=== PATIENT | female | born 1975 | race American Indian/Alaskan Native ===

== ENCOUNTER 2022-05-23 11:50 | Emergency (ER) | payer SELFPAY ==
--- NOTE | 2022-05-23 13:16 | Event Note ---
ED Screening Note ED Screening Note: 46-year-old female presenting with chest pain. Patient reports also experiencing some anxiety attack she just experienced grief as per spouse in front of her 9-year-old. She is experiencing increasing anxiety attacks, she is tearful in triage no SI no HI. 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 In the setting of a significantly high volume and record number of patients presenting to the emergency department and the fact that we have a limited space to see patients we have implemented the provider in triage protocol this allows an expedited initial exam of patients that might otherwise have left without being seen or who would wait longer than usual to be seen by provider. I interviewed the patient and performed a limited physical exam. This patient is a pulled from the waiting room to triage room for an initial assessment of adrenal studies and then returned to the waiting room pending results of the studies. The ultimate final evaluation and disposition may be performed by another provider depending on room and provider availability.
--- NOTE | 2022-05-23 13:44 | XRay Report ---
CHEST 2 VIEWS INDICATION / CLINICAL INFORMATION: chest pain. COMPARISON: None available. FINDINGS: SUPPORT DEVICES: None. HEART / MEDIASTINUM: No significant abnormality. LUNGS / PLEURA: No significant pulmonary or pleural abnormality. No pneumothorax. ADDITIONAL FINDINGS: No significant additional findings. IMPRESSION: 1. No acute findings. Signer Name: Dayton De La Garza MD Signed: 05/23/2022 1:40 PM Workstation Name: [id number]
[2022-05-23 14:50] LABS: Hematocrit 43.6 % (30.3-42.9); Hemoglobin 14.6 gm/dl (10.1-14.3); Mean Corpuscular HGB Conc 34 % (30-34); Mean Corpuscular Volume 83 fl (79-97); Platelet Count 273 K/mm3 (140-440); Red Blood Count 5.29 M/mm3 (3.65-5.03); Red Cell Distribution Width 16.2 % (13.2-15.2)
[2022-05-23 14:52] LABS: BUN/Creatinine Ratio 11; Blood Urea Nitrogen 10 mg/dL (7-17); Calcium 9.5 mg/dL (8.4-10.2); Hemolysis Index 5
[2022-05-23] MEDS ORDERED: cloNIDine 0.1 MG TAB PO ONE (17:39)
[2022-05-23] MEDS ORDERED: LISINOPRIL 20 MG TAB PO ONE (17:42)
[2022-05-23] MEDS ORDERED: LORazepam 1 MG TAB PO ONE (17:43)
[2022-05-23] MEDS ORDERED: cloNIDine 0.2 MG TAB PO ONE (17:43)
[2022-05-23 19:03] VITALS: BP 227/132
--- NOTE | 2022-05-23 19:17 | Emergency Department Report ---
ED Chest Pain HPI - General Chief Complaint: Chest Pain Stated Complaint: CHEST PAIN Time Seen by Provider: 05/23/22 18:11 Source: patient, family Mode of arrival: Ambulatory Limitations: No Limitations - History of Present Illness Initial Comments: 46-year-old female history of hypertension medication noncompliant presents to the emergency department with chest pain. Patient reports she was at work and had sudden panic attack, reports she just experienced the loss of her partner who few days ago in her arms, and has since had a hard time grieving. She is very tearful, anxious. She denies history of anxiety, she denies taking any medications. She denies headache, dizziness, vision changes, she denies drug use. No SI no HI -: Sudden Pain Location: substernal Pain Radiation: none Severity: moderate Severity scale (0 -10): 3 Quality: tightness Consistency: other (Improve) Improves With: nothing Worsens With: nothing Context: other (Recent loss) re: denies: nausea, vomting, diaphoresis, dyspnea, sense of impending doom Treatments Prior to Arrival: none - Related Data Previous Rx's Medication Instructions Recorded Last Taken Type Naproxen [Naprosyn] 500 mg PO BID #20 tablet 09/23/19 Unknown Rx LORazepam [Ativan] 0.5 mg PO QHS #7 tab 05/23/22 Unknown Rx hydroCHLOROthiazide [Hctz] 12.5 mg PO QDAY #30 capsule 05/23/22 Unknown Rx lisinopriL [Zestril TAB] 40 mg PO QDAY #30 tablet 05/23/22 Unknown Rx Allergies Allergy/AdvReac Type Severity Reaction Status Date / Time No Known Allergies Allergy Verified 05/23/22 13:15 Heart Score - HEART Score History: Moderately suspicious EKG: Non-specific Age: < 45 Risk factors: 1-2 risk factors Troponin: < normal limit HEART Score: 3 - EKG Read Time Time EKG Completed: 13:13 EKG Read Time: 13:20 - Critical Actions Critical Actions: 0-3 pts:0.9-1.7%risk of adverse cardiac event.Candidate for discharge ED Review of Systems ROS: Stated complaint: CHEST PAIN Other details as noted in HPI Constitutional: no symptoms reported. denies: chills, diaphoresis, fever Eyes: as per HPI ENT: denies: ear pain, throat pain Respiratory: denies: cough, orthopnea, wheezing Cardiovascular: chest pain, palpitations. denies: dyspnea on exertion, edema, syncope Endocrine: denies: excessive sweating, intolerance to cold Gastrointestinal: denies: abdominal pain, nausea, vomiting Musculoskeletal: denies: back pain Skin: denies: rash Neurological: denies: headache, weakness, numbness, paresthesias Hematological/Lymphatic: denies: easy bruising ED Past Medical Hx - Past Medical History Previous Medical History?: Yes Hx Hypertension: Yes - Social History Smoking Status: Current Every Day Smoker Substance Use Type: None - Medications Home Medications: Home Medications Medication Instructions Recorded Confirmed Last Taken Type Naproxen [Naprosyn] 500 mg PO BID #20 tablet 09/23/19 Unknown Rx LORazepam [Ativan] 0.5 mg PO QHS #7 tab 05/23/22 Unknown Rx hydroCHLOROthiazide [Hctz] 12.5 mg PO QDAY #30 capsule 05/23/22 Unknown Rx lisinopriL [Zestril TAB] 40 mg PO QDAY #30 tablet 05/23/22 Unknown Rx ED Physical Exam - General Limitations: No Limitations General appearance: alert, anxious - Head Head exam: Present: atraumatic - Eye Eye exam: Present: normal appearance Pupils: Present: normal accommodation - ENT ENT exam: Present: normal exam, normal orophraynx - Neck Neck exam: Present: normal inspection - Respiratory Respiratory exam: Present: normal lung sounds bilaterally. Absent: respiratory distress, chest wall tenderness - Cardiovascular Cardiovascular Exam: Present: regular rate, normal rhythm - GI/Abdominal GI/Abdominal exam: Present: soft. Absent: hyperactive bowel sounds - Extremities Exam Extremities exam: Present: normal inspection, full ROM, normal capillary refill. Absent: tenderness - Back Exam Back exam: Present: normal inspection, full ROM. Absent: tenderness - Neurological Exam Neurological exam: Present: alert, oriented X3 - Psychiatric Psychiatric exam: Present: anxious, other (Appropriate behavior consolable) ED Course Vital Signs 05/23/22 05/23/22 05/23/22 13:05 17:36 19:01 Temperature 98.1 F 97.8 F Pulse Rate 95 H 88 Respiratory 18 18 Rate Blood Pressure 227/132 Blood Pressure 216/144 253/127 [Right] O2 Sat by Pulse 95 97 Oximetry ED Medical Decision Making - Lab Data Result diagrams: 05/23/22 14:08 05/23/22 14:08 - EKG Data When compared to previous EKG there are: previous EKG unavailable 05/23/22 20:57 EKG taken at 1313, normal sinus rhythm at 93, PVC, LAE, anterior infarct old, CT interval 672, QRS of 98, QT/QTc of 390/486, abnormal EKG. - Medical Decision Making 46-year-old female history of hypertension medication noncompliant presents to the emergency department with chest pain. Patient reports she was at work and had sudden panic attack, reports she just experienced the loss of her partner who few days ago in her arms, and has since had a hard time grieving. She is very tearful, anxious. She denies history of anxiety, she denies taking any medications. She denies headache, dizziness, vision changes, she denies drug use. No SI no H Patient has been off blood pressure medications for over 2 years, most likely her pressure has been high for a while. She is unsure of what her blood pressure usually runs as she does not check her blood pressure no has been to a doctor's office in over a year. Blood pressure addressed with home medication, her anxiety has been addressed as well, no SI no HI, patient has a good support system, and also has an appointment with a grief and counselor for herself and her son in 3 days. Symptoms are without headache, without orthopnea, her chest x-ray is negative for any acute cardiomegaly or effusions, most likely resistant hypertension secondary to medication noncompliance. Patient refused to stay for admission or further blood pressure management, insist on going home. I have refilled her lisinopril, I added some hydrochlorothiazide 12.5 mg, and I also gave patient 7 tablets of Ativan as needed for panic attacks/insomnia. Patient remained stable nontoxic-appearing, afebrile, ambulating steadily without assistance. Gone over ED findings with patient as well as plan for follow-up. Also discussed return precautions with patient, all questions and concerns addressed. Patient is stable to be discharged follow-up outpatient. Audio voice dictation device used, hence the chart might contain some dictation errors, mispronunciations, wrong spelling and wrong verbiage. Critical care attestation.: If time is entered above; I have spent that time in minutes in the direct care of this critically ill patient, excluding procedure time. ED Disposition Clinical Impression: Panic attack, Hypertensive urgency, Medical non-compliance Disposition: 01 HOME / SELF CARE / HOMELESS Is pt being admited?: No Does the pt Need Aspirin: No Condition: Stable Instructions: Managing Loss, Adult, Managing Your Hypertension Additional Instructions: Thank you for letting his take care of you today Johan truly is sorry for your loss. Make sure you follow-up with your primary care doctor in the next 30 days or we have discussed. Also follow-up with a grief counselor at work. Prescriptions: LORazepam [Ativan] 0.5 mg PO QHS #7 tab hydroCHLOROthiazide [Hctz] 12.5 mg PO QDAY #30 capsule lisinopriL [Zestril TAB] 40 mg PO QDAY #30 tablet Forms: Work/School Release Form(ED)
--- NOTE | 2022-05-24 13:16 | Electrocardiograph Report ---
[facility] Test Date: 2022-05-23 Test Time: 13:13:30 Pat Name: LAKIA JJ Department: Room: Gender: F [employer]: JENNIFER : 1975 Requested By: LAWANDA PRETTY Order Number: [id number] Reading MD: Yesenia Tamayo Measurements Intervals [place] Rate: 93 P: 84 KS: 164 QRS: 50 QRSD: 98 T: 226 QT: 398 QTc: 486 Interpretive Statements Sinus rhythm Left atrial enlargement Poor R wave progression Left ventricle hypertrophy with repolarization abnormalities of LVH No previous ECG available for comparison Electronically Signed On 05-24-2022 13:16:09 EDT by Yesenia Tamayo
== END 2022-05-23 19:19 | disposition home or self-care (01) ==
LOC: ED 11:50
DX: F41.0 Panic disorder [episodic paroxysmal anxiety] (principal); I16.0 Hypertensive urgency; Z91.14 Patient's other noncompliance with medication regimen; I10 Essential (primary) hypertension
CPT/HCPCS: 36415; 71046; 80048; 84484; 85027; 93005; 99283; 99284

== ENCOUNTER 2022-06-05 22:47 | Emergency (ER) | payer SELFPAY ==
[2022-06-06 04:58] VITALS: BP 210/111
[2022-06-06] MEDS ORDERED: cloNIDine 0.1 MG TAB PO ONE (05:01)
--- NOTE | 2022-06-06 05:06 | Emergency Department Report ---
ED General Adult HPI - General Chief complaint: Anxiety Stated complaint: LIGHTHEAD Time Seen by Provider: 06/06/22 04:45 Source: patient Mode of arrival: Ambulatory Limitations: No Limitations - History of Present Illness Initial comments: 46-year-old female past medical history hypertension reports to the ER with complaints of bilateral foot numbness that started last night. Patient reports she still experiencing anxiety and panic attacks due to the of her . Recently took place on 15 May. Patient reports she is no longer experiencing numbness in her feet at this time. Patient does report she still feels anxious at times and have emotional ups and downs due to the loss of her spouse. Patient reports no chest pain or shortness of breath. Patient reports she does have upcoming appointments with her therapist as well as her primary care provider later this month. No other acute signs or symptoms reported. Severity scale (0 -10): 0 - Related Data Previous Rx's Medication Instructions Recorded Last Taken Type Naproxen [Naprosyn] 500 mg PO BID #20 tablet 09/23/19 Unknown Rx LORazepam [Ativan] 0.5 mg PO QHS #7 tab 05/23/22 Unknown Rx hydroCHLOROthiazide [Hctz] 12.5 mg PO QDAY #30 capsule 05/23/22 Unknown Rx lisinopriL [Zestril TAB] 40 mg PO QDAY #30 tablet 05/23/22 Unknown Rx ALPRAZolam [Xanax TAB] 0.25 mg PO TID PRN 2 Days #6 tab 06/06/22 Unknown Rx hydrOXYzine PAMOATE [Vistaril] 50 mg PO Q6HR PRN 6 Days #24 06/06/22 Unknown Rx capsule hydroCHLOROthiazide [Hctz] 12.5 mg PO QDAY 30 Days #30 capsule 06/06/22 Unknown Rx lisinopriL [Zestril TAB] 40 mg PO QDAY 30 Days #30 tab 06/06/22 Unknown Rx Allergies Allergy/AdvReac Type Severity Reaction Status Date / Time No Known Allergies Allergy Verified 05/23/22 13:15 ED Review of Systems ROS: Stated complaint: LIGHTHEAD Other details as noted in HPI Comment: All other systems reviewed and negative Neurological: other (Bilateral feet numbness.) Psychiatric: anxiety ED Past Medical Hx - Past Medical History Previous Medical History?: Yes Hx Hypertension: Yes - Social History Smoking Status: Current Every Day Smoker Substance Use Type: None - Medications Home Medications: Home Medications Medication Instructions Recorded Confirmed Last Taken Type Naproxen [Naprosyn] 500 mg PO BID #20 tablet 09/23/19 Unknown Rx LORazepam [Ativan] 0.5 mg PO QHS #7 tab 05/23/22 Unknown Rx hydroCHLOROthiazide [Hctz] 12.5 mg PO QDAY #30 capsule 05/23/22 Unknown Rx lisinopriL [Zestril TAB] 40 mg PO QDAY #30 tablet 05/23/22 Unknown Rx ALPRAZolam [Xanax TAB] 0.25 mg PO TID PRN 2 Days #6 tab 06/06/22 Unknown Rx hydrOXYzine PAMOATE [Vistaril] 50 mg PO Q6HR PRN 6 Days #24 06/06/22 Unknown Rx capsule hydroCHLOROthiazide [Hctz] 12.5 mg PO QDAY 30 Days #30 capsule 06/06/22 Unknown Rx lisinopriL [Zestril TAB] 40 mg PO QDAY 30 Days #30 tab 06/06/22 Unknown Rx ED Physical Exam - General Limitations: No Limitations General appearance: alert, in no apparent distress - Head Head exam: Present: atraumatic, normocephalic - Eye Eye exam: Present: normal appearance - ENT ENT exam: Present: mucous membranes moist - Neck Neck exam: Present: normal inspection - Respiratory Respiratory exam: Present: normal lung sounds bilaterally. Absent: respiratory distress - Cardiovascular Cardiovascular Exam: Present: regular rate, normal rhythm. Absent: systolic murmur, diastolic murmur, rubs, gallop - GI/Abdominal GI/Abdominal exam: Present: soft, normal bowel sounds - Extremities Exam Extremities exam: Present: normal inspection - Back Exam Back exam: Present: normal inspection - Neurological Exam Neurological exam: Present: alert, oriented X3 - Psychiatric Psychiatric exam: Present: normal affect, normal mood, anxious. Absent: homicidal ideation, suicidal ideation - Skin Skin exam: Present: warm, dry, intact, normal color. Absent: rash ED Course Vital Signs 06/06/22 06/06/22 06/06/22 01:57 04:58 05:04 Temperature 98.8 F 98.3 F Pulse Rate 84 85 85 Respiratory 20 18 Rate Blood Pressure 208/105 210/111 Blood Pressure 210/111 [Right] O2 Sat by Pulse 98 98 Oximetry ED Medical Decision Making - Medical Decision Making 46-year-old female past medical history hypertension reports to the ER with com plaints of bilateral foot numbness that started last night. Patient reports she still experiencing anxiety and panic attacks due to the of her . Recently took place on 15 May. Patient reports she is no longer experiencing numbness in her feet at this time. Patient does report she still feels anxious at times and have emotional ups and downs due to the loss of her spouse. Liz nt reports no chest pain or shortness of breath. Patient reports she does have upcoming appointments with her therapist as well as her primary care provider later this month. No other acute signs or symptoms reported. No acute clinical findings on physical exam. No labs or imaging is needed. Patient given a refill for her blood pressure medications. Patient given a short course of Xanax for anxiety. As well as a prescription for Vistaril for anxiety as well. Patient informed to follow-up with her therapist as well as her primary care provider for further grief management. Patient agrees with plan of care verbalized understanding. Patient informed symptoms are to get worse to report back to the ER. Vital Signs 06/06/22 06/06/22 06/06/22 01:57 04:58 05:04 Temperature 98.8 F 98.3 F Pulse Rate 84 85 85 Respiratory 20 18 Rate Blood Pressure 208/105 210/111 Blood Pressure 210/111 [Right] O2 Sat by Pulse 98 98 Oximetry BP at time of D/C 181/110 after clonidine 0.1mg , asymptomatic Critical care attestation.: If time is entered above; I have spent that time in minutes in the direct care of this critically ill patient, excluding procedure time. ED Disposition Clinical Impression: Anxiousness, Grief reaction HTN (hypertension) Qualifiers: Hypertension type: primary hypertension Qualified Code(s): I10 - Essential (primary) hypertension Disposition: 01 HOME / SELF CARE / HOMELESS Is pt being admited?: No Condition: Stable Instructions: Managing Loss, Adult, Hypertension, Adult, [id number], Managing Anxiety, Adult, Hypertension (ED) Prescriptions: hydroCHLOROthiazide [Hctz] 12.5 mg PO QDAY 30 Days #30 capsule hydrOXYzine PAMOATE [Vistaril] 50 mg PO Q6HR PRN 6 Days #24 capsule PRN Reason: Anxiety ALPRAZolam [Xanax TAB] 0.25 mg PO TID PRN 2 Days #6 tab PRN Reason: Anxiety lisinopriL [Zestril TAB] 40 mg PO QDAY 30 Days #30 tab
== END 2022-06-06 06:33 | disposition home or self-care (01) ==
LOC: ED 22:47
DX: I10 Essential (primary) hypertension (principal); F41.9 Anxiety disorder, unspecified; F43.20 Adjustment disorder, unspecified; F17.200 Nicotine dependence, unspecified, uncomplicated
CPT/HCPCS: 99282